=== PATIENT | female | born 1955 | race Caucasian/White ===

== ENCOUNTER 2019-05-05 12:48 | Outpatient (CLI) | payer OTHER ==
--- NOTE | 2019-05-05 14:08 | BD ---
DEXA BONE DENSITY STUDY: HISTORY: Postmenopausal. LUMBAR SPINE BMD (g/cm2) T-SCORE L1 0.776 -2.0 L2 0.764 -2.4 L3 0.735 -3.2 L4 0.585 -4.3 TOTAL 0.705 -3.1 LEFT FEMORAL NECK 0.576 -2.5 TOTAL 0.774 -1.4 IMPRESSION: Osteoporosis of the lumbar spine and left femoral neck. POS: [facility]
--- NOTE | 2019-05-05 15:11 | MMO ---
Bilateral MAMMO Bilat Screen [facility]. CLINICAL HISTORY: Patient is 63 years old and is seen for screening. The patient has no family history of breast cancer. The patient has no personal history of cancer. VIEWS: The views performed were: bilateral craniocaudal with tomosynthesis and bilateral mediolateral oblique with tomosynthesis. FILMS COMPARED: The present examination has been compared to prior imaging studies performed at [facility] on 03/31/2008, 04/01/2009, 03/20/2012 and 04/08/2013. This study has been interpreted with the assistance of computer-aided detection. MAMMOGRAM FINDINGS: There are scattered fibroglandular densities. There are no suspicious masses, suspicious calcifications, or new areas of architectural distortion. IMPRESSION: THERE IS NO MAMMOGRAPHIC EVIDENCE OF MALIGNANCY. A ROUTINE FOLLOW-UP MAMMOGRAM IN 1 YEAR IS RECOMMENDED. THE RESULTS OF THIS EXAM WERE SENT TO THE PATIENT. ACR BI-RADS Category 1 - Negative MAMMOGRAPHY NOTE: 1. A negative mammogram report should not delay a biopsy if a dominant of clinically suspicious mass is present. 2. Approximately 10% to 15% of breast cancers are not detected by mammography. 3. Adenosis and dense breasts may obscure an underlying neoplasm. Reported by: MORENITA LI MD Electonically Signed: [id number]
== END 2019-05-05 12:49 | disposition home or self-care (01) ==
LOC: BICMAMMO 12:48
PROVIDERS: ATTEND Family Medicine
DX: Z12.31 Encounter for screening mammogram for malignant neoplasm of breast (principal); Z13.820 Encounter for screening for osteoporosis; M81.0 Age-related osteoporosis without current pathological fracture
CPT/HCPCS: 77063; 77067; 77080